=== PATIENT | female | born 1970 | race Caucasian/White ===

== ENCOUNTER 2019-04-19 11:19 | Inpatient (IN) | payer MEDICAID ==
[~2019-04-19] VITALS: Ht 167.6 cm; Wt 102.5 kg
[2019-04-19] VITALS (11 sets, daily range): BP systolic 108–152; BP diastolic 70–97
[2019-04-19] MEDS ORDERED: normal saline 1000ML IV soln IVB ONE (11:35)
[2019-04-19] MEDS ORDERED: ondansetron/PF 4mg/2ml inj IV ONE (11:35)
[2019-04-19] MEDS: morphine 4 MG/ML inj SYRINge IV PRN ×2 (12:00→13:05)
[2019-04-19 12:23] LABS: BASOPHILS # (AUTO) 0.1 X10'3 (0-0.2); BASOPHILS % (AUTO) 0.5 % (0-1); EOSINOPHILS % (AUTO) 0.2 % (0-6); HEMATOCRIT 39.9 % (35.0-45.0); HEMOGLOBIN 13.2 g/dl (12.0-16.0); LYMPHOCYTES # (AUTO) 1.7 X10'3 (1.1-4.8); LYMPHOCYTES % (AUTO) 17.8 % (21-51); MEAN CORPUSCULAR HEMOGLOBIN 28.1 PG (27.0-31.0); MEAN CORPUSCULAR HGB CONC 33.1 g/dL (33.0-36.5); MEAN CORPUSCULAR VOLUME 84.7 FL (78-98); MEAN PLATELET VOLUME 8.8 FL (7.4-10.4); MONOCYTES # (AUTO) 0.3 X10'3 (0-0.9); MONOCYTES % (AUTO) 3.2 % (2-12); NEUTROPHILS # (AUTO) 7.6 X10'3 (1.8-7.7); NEUTROPHILS % (AUTO) 78.3 % (42-75); PLATELET COUNT 295 X10'3 (140-440); RED BLOOD COUNT 4.71 X10'6 (4.20-5.60); RED CELL DISTRIBUTION WIDTH 13.6 % (11.5-14.5); WHITE BLOOD COUNT 9.7 X10'3 (4.5-11.0)
[2019-04-19 12:45] LABS: ALANINE AMINOTRANSFERASE 24 U/L (12-78); ALBUMIN 3.7 G/DL (3.4-5.0); ALBUMIN/GLOBULIN RATIO 0.9 (1.1-1.5); ALKALINE PHOSPHATASE 131 IU/L (46-116); ANION GAP 13 (8-16); ASPARTATE AMINO TRANSFERASE 19 U/L (10-37); BILIRUBIN,TOTAL 0.3 MG/DL (0.1-1.0); BLOOD UREA NITROGEN 12 MG/DL (7-18); CALCIUM 9.5 MG/DL (8.5-10.1); CHLORIDE 104 MMOL/L (99-107); CREATININE 0.92 MG/DL (0.40-0.90); GLUCOSE 146 MG/DL (70-104); LIPASE 191 U/L (73-393); POTASSIUM 3.7 MMOL/L (3.5-5.1); SODIUM 139 MMOL/L (135-145); TOTAL CARBON DIOXIDE 22.1 MMOL/L (24-32); TOTAL PROTEIN 7.6 G/DL (6.4-8.2); TROPONIN I 0.44 NG/ML (0.0-0.05); eGFR 66 ML/MIN
[2019-04-19 12:48] LABS: URINE HCG NEGATIVE (NEG)
[2019-04-19 12:49] LABS: CLARITY,URINE SLIGHTLY CLOUDY (Clear); COLOR,URINE YELLOW (Yellow); GLUCOSE, URINE NEGATIVE (Neg); KETONES,URINE 15 mg/dl (Neg); LEUKOCYTE ESTERASE ,URINE NEGATIVE (Neg); NITRITES, URINE NEGATIVE (Neg); OCCULT BLOOD,URINE NEGATIVE (Neg); PROTEIN,URINE NEGATIVE (Neg); UROBILINOGEN,URINE 0.2 E.U/dL (0.2-1.0)
[2019-04-19 12:51] LABS: UA COLLECTION TYPE URINAL
[2019-04-19 12:55] LABS: BACTERIA,URINE FEW /HPF (Neg); MUCUS STRANDS FEW /LPF (Neg); RBC,URINE 0-2 /HPF (0-2); SQUAMOUS EPITHELIAL CELL,UR MODERATE /LPF (FEW); WBC,URINE 0-4 /HPF (0-4)
[2019-04-19] MEDS ORDERED: aspirin 325mg tablet PO ONE (13:05)
--- NOTE | 2019-04-19 13:14 | NUR ---
Patient given second dose of morphine, patient c/o itching at site and reddness over the left arm. patient denies SOB and/or CP. Laney RN spoke with Dr. Luis regarding possible allergic reaction. Patient IV patent, patient denies pain, and flushing well. Dr. Luis stated that he would order patient medication.
[2019-04-19] MEDS ORDERED: diphenhydrAMINE 50 mg/ml inj IV ONE (13:15)
[2019-04-19] MEDS ORDERED: iohexol 300mg/ml 100ml inj. ONE (13:33)
[2019-04-19] MEDS ORDERED: heparin 25,000 UNIT/250ml bag 250 ML IV SCH (13:58)
[2019-04-19] MEDS ORDERED: heparin 10,000 units/1 ML INJ IV ONE (14:00)
[2019-04-19] MEDS: nitroGLYCERIN 0.4mg SUBLingual tab SL PRN ×4 (14:06→18:11)
[2019-04-19 14:18] LABS: PARTIAL THROMBOPLASTIN TIME 28 SECONDS (22-32)
[2019-04-19] MEDS ORDERED: nitroGLYCERIN-Tridil 50MG/D5W 250 ML IV SCH ×3 (14:25→18:59)
[2019-04-19 14:26] LABS: BASOPHILS # (AUTO) 0.1 X10'3 (0-0.2); BASOPHILS % (AUTO) 0.7 % (0-1); EOSINOPHILS % (AUTO) 0.1 % (0-6); HEMATOCRIT 40.7 % (35.0-45.0); HEMOGLOBIN 13.5 g/dl (12.0-16.0); LYMPHOCYTES % (AUTO) 9.8 % (21-51); MEAN CORPUSCULAR HGB CONC 33.2 g/dL (33.0-36.5); MEAN CORPUSCULAR VOLUME 84.4 FL (78-98); MEAN PLATELET VOLUME 8.3 FL (7.4-10.4); MONOCYTES # (AUTO) 0.3 X10'3 (0-0.9); MONOCYTES % (AUTO) 2.6 % (2-12); NEUTROPHILS # (AUTO) 8.5 X10'3 (1.8-7.7); NEUTROPHILS % (AUTO) 86.8 % (42-75); PLATELET COUNT 284 X10'3 (140-440); RED BLOOD COUNT 4.82 X10'6 (4.20-5.60); RED CELL DISTRIBUTION WIDTH 13.8 % (11.5-14.5); WHITE BLOOD COUNT 9.8 X10'3 (4.5-11.0)
[2019-04-19] MEDS ORDERED: magnesium 4gm in 100ml NS 100 ML IV PRN (14:45)
[2019-04-19] MEDS ORDERED: mag hydrox/Alum hydrox/simeth 30ml oral suspension PO PRN (14:45)
[2019-04-19] MEDS ORDERED: potassium Cl 20 mEq SR tablet PO PRN ×2 (14:45)
[2019-04-19] MEDS ORDERED: magnesium 2GM in 50ml NS 50 ML IV PRN (14:45)
[2019-04-19] MEDS ORDERED: magnesium hydroxide 30ml (MOM) UD suspension PO PRN (14:45)
[2019-04-19] MEDS ORDERED: ondansetron/PF 4mg/2ml inj IV PRN (14:45)
[2019-04-19] MEDS ORDERED: magnesium Cl slow-release 64mg tablet PO PRN (14:45)
[2019-04-19] MEDS ORDERED: potassium CL 10mEq/100ml bag 100 ML IV PRN ×2 (14:45)
[2019-04-19 14:47] LABS: URINE AMPHETAMINE SCREEN NEGATIVE (Neg); URINE BARBITUATE SCREEN NEGATIVE (Neg); URINE BENZODIAZEPINES SCREEN NEGATIVE (Neg); URINE CANNABINOID SCREEN NEGATIVE (Neg); URINE COCAINE SCREEN NEGATIVE (Neg); URINE METHADONE SCREEN NEGATIVE (Neg); URINE OPIATE SCREEN POSITIVE (Neg); URINE PHENCYCLIDINE SCREEN NEGATIVE (Neg)
[2019-04-19] MEDS ORDERED: nitroGLYCERIN 0.4mg/hour patch TD SCH (15:20)
[2019-04-19] MEDS ORDERED: heparin 10,000 units/1 ML INJ IV PRN (15:20)
--- NOTE | 2019-04-19 15:32 | NUR ---
Received report from Tessa SORTO RN. Noted Nitro drip has been dc'd and PTT was drawn and is pending.
[2019-04-19] MEDS ORDERED: atorvastatin 20mg tablet PO SCH (16:00)
[2019-04-19] MEDS ORDERED: OMEP40CA13 PO (16:10)
[2019-04-19] MEDS ORDERED: LANS15CA10 PO (16:10)
[2019-04-19] MEDS ORDERED: ATOR20TA PO (16:10)
[2019-04-19] MEDS: lisinopril 2.5mg tablet PO SCH (16:14)
[2019-04-19] MEDS: normal saline 1000ml 1,000 ML IV SCH (16:20)
[2019-04-19] MEDS: heparin 25,000 UNIT/250ml bag 250 ML IV SCH ×2 (17:29→20:20)
--- NOTE | 2019-04-19 17:40 | NUR ---
asked by primary RN Lucille to give nitro. pt c/o epigastric area pain 12/27. pt states the pain is the same as it was earlier in the day and that it was relieved with nitro then. pts current BP 131/86
--- NOTE | 2019-04-19 18:00 | NUR ---
Patient in room MED 315. I have received report from SALVADOR VERONICA and had the opportunity to ask questions and assume patient care.
--- NOTE | 2019-04-19 18:05 | NUR ---
Problems reprioritized. Patient report given, questions answered & plan of care reviewed with Desiree VERONICA.
[2019-04-19 18:20] LABS: PARTIAL THROMBOPLASTIN TIME 129 SECONDS (22-32)
--- NOTE | 2019-04-19 18:25 | NUR ---
Paged hosp, "Lucilel [phone] ACCE unit Anabelle Castellon having sharp chest pain after 3 nitro, ekg read per ER doc- pain medicine?" Awaiting on callback.
--- NOTE | 2019-04-19 18:45 | NUR ---
PAGE /ALBERTINA TROP 1.72 promotional table spacer PAGER ID: [phone] MESSAGE: 315 NICOLE SAWYER-ALBERTINA 1824 TROP 1.72, UNRELIEVED CHEST PAIN, NITRO X3 GIVEN, EKG DONE, PLEASE ADVISE ANG [phone]
--- NOTE | 2019-04-19 19:01 | NUR ---
Received orders from Dr. Dobson for pain and elevated troponin.
[2019-04-19] MEDS ORDERED: HYDROmorphone inj. 0.5 MG/0.5 ML DISP.SYRIN IV PRN (19:05)
[2019-04-19] MEDS: HYDROmorphone 1 mg/ml syringe IV PRN ×2 (19:42→22:15)
[2019-04-19] MEDS: carVEDilol 3.125mg tablet PO SCH (19:43)
--- NOTE | 2019-04-19 20:20 | NUR ---
HEPARIN INFUSION RATE CHANGE TO 700 Addendum: 04/19/19 at 2129 by Desiree Heart RN HEPARIN RATE CHANGE FROM 100 TO 700 PER PROTOCOL BASED ON PTT OF 129 RESULTS AT 1820
--- NOTE | 2019-04-19 20:32 | NUR ---
CRITICAL TROP 1.79 REPORTED 315 NICOLE VILLAGRAN, CRITICAL LAB 12 HOUR TROPONIN 1.79; REPORTING, Desiree RN ACCE [id number]
--- NOTE | 2019-04-19 20:45 | NUR ---
MESSAGED HOSPITALIST FOR CRITICAL TROP 1.79
--- NOTE | 2019-04-19 21:29 | NUR ---
GRETCHEN MESSAGED FOR AGGRESTAT CLARIFICATION
[2019-04-19] MEDS: tirofiban 5mg in NS 100mL 100 ML IV SCH ×2 (21:49→23:41)
[2019-04-20] VITALS (16 sets, daily range): BP systolic 92–124; BP diastolic 50–78
[2019-04-20] MEDS: heparin 10,000 units/1 ML INJ IV PRN ×3 (00:05→14:24)
[2019-04-20] MEDS: HYDROmorphone 1 mg/ml syringe IV PRN ×7 (00:10→20:07)
[2019-04-20] MEDS: normal saline 1000ml 1,000 ML IV SCH ×4 (00:42→21:56)
[2019-04-20 02:46] LABS: ALANINE AMINOTRANSFERASE 35 U/L (12-78); ALBUMIN 3.4 G/DL (3.4-5.0); ALBUMIN/GLOBULIN RATIO 0.9 (1.1-1.5); ALKALINE PHOSPHATASE 123 IU/L (46-116); ANION GAP 9 (8-16); ASPARTATE AMINO TRANSFERASE 21 U/L (10-37); BILIRUBIN,TOTAL 0.3 MG/DL (0.1-1.0); BLOOD UREA NITROGEN 5 MG/DL (7-18); BUN/CREATININE RATIO 6.1 (6.6-38.0); CALCIUM 8.6 MG/DL (8.5-10.1); CHLORIDE 103 MMOL/L (99-107); CREATININE 0.82 MG/DL (0.40-0.90); GLUCOSE 103 MG/DL (70-104); POTASSIUM 3.6 MMOL/L (3.5-5.1); SODIUM 139 MMOL/L (135-145); TOTAL CARBON DIOXIDE 27.2 MMOL/L (24-32); eGFR 75 ML/MIN
[2019-04-20 02:49] LABS: CHOL/HDL RATIO 2.6 (0.00-4.99); CHOLESTEROL 128 MG/DL (0-200); HDL CHOLESTEROL 49 MG/DL (35-60); LDL CHOLESTEROL 64 MG/DL (50-100); MAGNESIUM 1.7 MG/DL (1.5-2.4); TRIGLYCERIDES 90 MG/DL (20-135)
[2019-04-20] MEDS: tirofiban 5mg in NS 100mL 100 ML IV SCH ×2 (05:44→11:45)
--- NOTE | 2019-04-20 06:10 | NUR ---
Patient in room MED 315. I have received report from JEREMÍAS Ramírez and had the opportunity to ask questions and assume patient care.
[2019-04-20 06:22] LABS: BASOPHILS # (AUTO) 0.1 X10'3 (0-0.2); BASOPHILS % (AUTO) 0.6 % (0-1); EOSINOPHILS % (AUTO) 0.3 % (0-6); HEMATOCRIT 34.8 % (35.0-45.0); HEMOGLOBIN 11.5 g/dl (12.0-16.0); LYMPHOCYTES # (AUTO) 2.1 X10'3 (1.1-4.8); LYMPHOCYTES % (AUTO) 19.7 % (21-51); MEAN CORPUSCULAR HEMOGLOBIN 28.2 PG (27.0-31.0); MEAN CORPUSCULAR VOLUME 85.3 FL (78-98); MEAN PLATELET VOLUME 8.2 FL (7.4-10.4); MONOCYTES # (AUTO) 0.7 X10'3 (0-0.9); MONOCYTES % (AUTO) 6.4 % (2-12); NEUTROPHILS # (AUTO) 7.7 X10'3 (1.8-7.7); PLATELET COUNT 265 X10'3 (140-440); RED BLOOD COUNT 4.08 X10'6 (4.20-5.60); RED CELL DISTRIBUTION WIDTH 14.1 % (11.5-14.5); WHITE BLOOD COUNT 10.5 X10'3 (4.5-11.0)
[2019-04-20] MEDS: carVEDilol 3.125mg tablet PO SCH ×2 (07:02→19:52)
[2019-04-20] MEDS: lisinopril 2.5mg tablet PO SCH (07:02)
[2019-04-20] MEDS: K and/or MAG REPLACEMENT MC SCH (07:03)
[2019-04-20] MEDS: atorvastatin 20mg tablet PO SCH (07:08)
[2019-04-20] MEDS ORDERED: LANSOPRAZOLE PO SCH (08:00)
[2019-04-20] MEDS: aspirin 81mg tab.chew PO SCH (08:31)
[2019-04-20] MEDS: pantoprazole 40mg Tablet.DR PO SCH (08:31)
[2019-04-20] MEDS ORDERED: LIDOcaine/PRILOcaine 5gm cream TP ONE (11:20)
--- NOTE | 2019-04-20 15:01 | NUR ---
Plan for patient to get picked up at 1630 for a 1700 procedure.
--- NOTE | 2019-04-20 15:04 | NUR ---
Orientee documentation: I have reviewed and agree with all interventions, assessments performed and documented by Spring VERONICA. Orientee Medication Administration: For this medication-pass time frame, all medication were reviewed, dispensed, administered and documented per hospital policy by Spring VERONICA.
--- NOTE | 2019-04-20 15:57 | NUR ---
PAGED DR. ESCAMILLA INCREASED TEMP & HR "PAGER ID: [phone] MESSAGE: RM 315 Cain Castellon Non-urgent. Please call regarding increasing temperature & HR. Thanks Spring COBOS [phone]"
--- NOTE | 2019-04-20 16:00 | NUR ---
SPOKE WITH DR. ESCAMILLA REGARDING INCREASED TEMPERATURE & HR, RECEIVED ORDERS TO GIVE PRN TYLENOL AT THIS TIME.
[2019-04-20] MEDS: acetaminophen 325mg tablet PO PRN (16:04)
[2019-04-20] MEDS ORDERED: verapamil 2.5 mg/ml inj IV ONE (16:32)
[2019-04-20] MEDS ORDERED: midazolam 2 mg/2 ml injection ONE (16:33)
[2019-04-20] MEDS ORDERED: fentaNYL/PF 50MCG/1 ML 2ML syringe ONE (16:33)
[2019-04-20] MEDS ORDERED: nitroGLYCERIN-Tridil 50MG/D5W 250 ML IV ONE (16:33)
[2019-04-20] MEDS ORDERED: LIDOcaine 1% (10mg/ml)w/preservative injection 20ml MDV ONE (16:34)
[2019-04-20] MEDS ORDERED: iohexol 350MG/ML 100ml bottle IV ONE ×2 (16:34→18:24)
[2019-04-20] MEDS ORDERED: heparin 1,000unit/ml 10ml vial 10 ML ONE (16:34)
--- NOTE | 2019-04-20 16:45 | NUR ---
PATIENT TO [facility].
--- NOTE | 2019-04-20 17:45 | NUR ---
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
--- NOTE | 2019-04-20 18:15 | NUR ---
received report from JEREMÍAS Adkins
--- NOTE | 2019-04-20 18:28 | NUR ---
Problems reprioritized. Patient report given, questions answered & plan of care reviewed with JEREMÍAS Lopez.
--- NOTE | 2019-04-20 18:32 | NUR ---
pt went to get a CT scan
[2019-04-20] MEDS: LIDOcaine Viscous 15ml cup MM SCH (18:33)
[2019-04-20] MEDS: mag hydrox/Alum hydrox/simeth 30ml oral suspension PO SCH (19:51)
[2019-04-20] MEDS: pantoprazole 40MG/NS 100ML BAG 100 ML IV SCH (21:57)
[2019-04-21] VITALS (19 sets, daily range): BP systolic 89–142; BP diastolic 56–98
[2019-04-21] MEDS: piperacillin/tazo 3.375gm/50ml 50 ML IV SCH ×3 (00:44→16:00)
[2019-04-21] MEDS: pantoprazole 40MG/NS 100ML BAG 100 ML IV SCH ×2 (00:48→05:54)
[2019-04-21] MEDS: HYDROmorphone 1 mg/ml syringe IV PRN ×4 (05:54→23:10)
--- NOTE | 2019-04-21 06:15 | NUR ---
Patient in room MED 315. I have received report from JEREMÍAS Lopez and had the opportunity to ask questions and assume patient care.
[2019-04-21 06:19] LABS: BASOPHILS % (AUTO) 0.3 % (0-1); EOSINOPHILS # (AUTO) 0.1 X10'3 (0-0.9); EOSINOPHILS % (AUTO) 0.7 % (0-6); HEMATOCRIT 36.2 % (35.0-45.0); HEMOGLOBIN 11.8 g/dl (12.0-16.0); LYMPHOCYTES # (AUTO) 1.5 X10'3 (1.1-4.8); LYMPHOCYTES % (AUTO) 12.5 % (21-51); MEAN CORPUSCULAR HGB CONC 32.6 g/dL (33.0-36.5); MEAN CORPUSCULAR VOLUME 85.9 FL (78-98); MEAN PLATELET VOLUME 8.6 FL (7.4-10.4); MONOCYTES # (AUTO) 1.1 X10'3 (0-0.9); MONOCYTES % (AUTO) 9.3 % (2-12); NEUTROPHILS # (AUTO) 9.3 X10'3 (1.8-7.7); NEUTROPHILS % (AUTO) 77.2 % (42-75); PLATELET COUNT 213 X10'3 (140-440); RED BLOOD COUNT 4.21 X10'6 (4.20-5.60); RED CELL DISTRIBUTION WIDTH 14.2 % (11.5-14.5); WHITE BLOOD COUNT 12.1 X10'3 (4.5-11.0)
--- NOTE | 2019-04-21 06:40 | NUR ---
gave report to JEREMÍAS Posada and JEREMÍAS Londono "o"
[2019-04-21 07:02] LABS: ALANINE AMINOTRANSFERASE 26 U/L (12-78); ALBUMIN 2.8 G/DL (3.4-5.0); ALBUMIN/GLOBULIN RATIO 0.8 (1.1-1.5); ALKALINE PHOSPHATASE 108 IU/L (46-116); ANION GAP 8 (8-16); ASPARTATE AMINO TRANSFERASE 17 U/L (10-37); BILIRUBIN,TOTAL 0.8 MG/DL (0.1-1.0); BLOOD UREA NITROGEN 6 MG/DL (7-18); CALCIUM 8.3 MG/DL (8.5-10.1); CHLORIDE 104 MMOL/L (99-107); CREATININE 0.86 MG/DL (0.40-0.90); GLUCOSE 113 MG/DL (70-104); MAGNESIUM 1.7 MG/DL (1.5-2.4); POTASSIUM 3.6 MMOL/L (3.5-5.1); SODIUM 137 MMOL/L (135-145); TOTAL CARBON DIOXIDE 25.3 MMOL/L (24-32); TOTAL PROTEIN 6.5 G/DL (6.4-8.2); eGFR 71 ML/MIN
[2019-04-21] MEDS: normal saline 1000ml 1,000 ML IV SCH ×2 (07:33→16:42)
[2019-04-21] MEDS: pantoprazole 40mg Tablet.DR PO SCH (07:34)
[2019-04-21] MEDS: K and/or MAG REPLACEMENT MC SCH (07:34)
[2019-04-21] MEDS: mag hydrox/Alum hydrox/simeth 30ml oral suspension PO SCH (07:34)
[2019-04-21] MEDS: LIDOcaine Viscous 15ml cup MM SCH (07:34)
[2019-04-21] MEDS: atorvastatin 20mg tablet PO SCH (07:36)
[2019-04-21] MEDS: carVEDilol 3.125mg tablet PO SCH ×2 (07:36→21:09)
[2019-04-21] MEDS: lisinopril 2.5mg tablet PO SCH (07:36)
[2019-04-21] MEDS: aspirin 81mg tab.chew PO SCH (08:20)
[2019-04-21] MEDS ORDERED: famotidine/PF 10 mg/ml inj IV ONE (14:20)
--- NOTE | 2019-04-21 15:31 | NUR ---
Called report to Ranjana in Recovery.
--- NOTE | 2019-04-21 15:40 | NUR ---
Patient to OR at 1540.
[2019-04-21] MEDS ORDERED: BUPIVAcaine/PF 2.5 mg/ml (0.25%) 30ml vial ONE (17:09)
[2019-04-21] MEDS ORDERED: ceFAZolin 1000mg inj ONE (17:09)
[2019-04-21] MEDS ORDERED: sevoflurane 250ml liquid IH ONE (17:53)
[2019-04-21] MEDS ORDERED: midazolam 2 mg/2 ml injection ONE (18:00)
[2019-04-21] MEDS ORDERED: fentaNYL /PF 50mcg/ml 5ml ampule ONE (18:01)
[2019-04-21] MEDS ORDERED: ceFOXitin 2 GM ADDVANTGE BAG 50 ML IV ONE (18:02)
[2019-04-21] MEDS ORDERED: rocuronium 10mg/ml inj IV ONE ×3 (18:04→19:33)
--- NOTE | 2019-04-21 18:13 | NUR ---
Problems reprioritized. Patient report given, questions answered & plan of care reviewed with JEREMÍAS Lopez.
[2019-04-21] MEDS ORDERED: ringers solution, lacted 1,000 ML IV SCH (18:32)
[2019-04-21] MEDS ORDERED: hydrALAZINE 20mg/ml inj. IV PRN (18:35)
[2019-04-21] MEDS ORDERED: ondansetron/PF 4mg/2ml inj IV PRN ×2 (18:35→19:45)
[2019-04-21] MEDS ORDERED: labetalol 20mg/4ml (5mg/ml) syringe IV PRN (18:35)
[2019-04-21] MEDS ORDERED: HYDROmorphone inj. 0.5 MG/0.5 ML DISP.SYRIN IV PRN ×2 (18:35)
[2019-04-21] MEDS ORDERED: meperidine/PF 25mg/ml syringe IV PRN ×3 (18:35)
[2019-04-21] MEDS ORDERED: propofol inj 20 ML IV ONE (19:00)
[2019-04-21] MEDS ORDERED: acetaminophen 1,000mg/100ml IV 100 ML IV ONE (19:33)
[2019-04-21] MEDS ORDERED: glycopyrrolate 0.2mg/ml inj ONE (19:41)
[2019-04-21] MEDS ORDERED: neostigmine methylsulfate 1 MG/ML 10ml vial ONE (19:41)
--- NOTE | 2019-04-21 19:45 | NUR ---
ADMITTED TO PACU FROM OR ACCOMPANIED BY ANESTHESIA. INTIAL PHYSICAL ASSESSMENT DONE AND RECORDED. REPORT RECEIVED FROM ANESTHESIA.
--- NOTE | 2019-04-21 20:41 | NUR ---
received report from Katharine in Recovery
--- NOTE | 2019-04-21 20:45 | NUR ---
PACU DISCHARGE CRITERIA MET, REPORT GIVEN TO FLOOR. DENIES PAIN OR DISCOMFORT, TRANSFERRED TO ROOM IN STABLE GOOD CONDITION.
--- NOTE | 2019-04-21 20:55 | NUR ---
ADMITTED TO PACU FROM OR ACCOMPANIED BY ANESTHESIA. INTIAL PHYSICAL ASSESSMENT DONE AND RECORDED. REPORT RECEIVED FROM ANESTHESIA.
[2019-04-21] MEDS: lactobacillus rhamnosus 10,000 MMU CELLS/CAPSULE PO SCH (21:08)
[2019-04-21] MEDS: HYDROcodone/acetaminophen 10/325mg tab PO PRN (21:09)
[2019-04-21] MEDS: potassium CL 20mEq in D5-1/2NS 1,000 ML IV SCH (21:30)
--- NOTE | 2019-04-21 23:21 | NUR ---
315 going on tele 27, telephone station installer notified
[2019-04-22] MEDS: piperacillin/tazo 3.375gm/50ml 50 ML IV SCH ×4 (00:42→23:24)
[2019-04-22] MEDS: HYDROmorphone 1 mg/ml syringe IV PRN ×3 (01:36→07:28)
[2019-04-22 02:00] VITALS: BP 115/75
[2019-04-22] MEDS: normal saline 1000ml 1,000 ML IV SCH (02:42)
[2019-04-22] MEDS: potassium CL 20mEq in D5-1/2NS 1,000 ML IV SCH ×3 (05:41→19:42)
[2019-04-22 06:00] VITALS: BP 117/84
--- NOTE | 2019-04-22 06:00 | NUR ---
Patient in room MED 315. I have received report from JEREMÍAS Boo and had the opportunity to ask questions and assume patient care.
[2019-04-22 06:11] LABS: BASOPHILS # (AUTO) 0.1 X10'3 (0-0.2); BASOPHILS % (AUTO) 0.4 % (0-1); EOSINOPHILS # (AUTO) 0.1 X10'3 (0-0.9); EOSINOPHILS % (AUTO) 0.9 % (0-6); HEMATOCRIT 39.5 % (35.0-45.0); HEMOGLOBIN 12.8 g/dl (12.0-16.0); LYMPHOCYTES # (AUTO) 1.9 X10'3 (1.1-4.8); LYMPHOCYTES % (AUTO) 13.8 % (21-51); MEAN CORPUSCULAR HEMOGLOBIN 28.1 PG (27.0-31.0); MEAN CORPUSCULAR HGB CONC 32.5 g/dL (33.0-36.5); MEAN CORPUSCULAR VOLUME 86.3 FL (78-98); MEAN PLATELET VOLUME 8.7 FL (7.4-10.4); MONOCYTES # (AUTO) 1.2 X10'3 (0-0.9); MONOCYTES % (AUTO) 8.9 % (2-12); NEUTROPHILS # (AUTO) 10.2 X10'3 (1.8-7.7); PLATELET COUNT 241 X10'3 (140-440); RED BLOOD COUNT 4.58 X10'6 (4.20-5.60); RED CELL DISTRIBUTION WIDTH 14.2 % (11.5-14.5); WHITE BLOOD COUNT 13.4 X10'3 (4.5-11.0)
--- NOTE | 2019-04-22 06:25 | NUR ---
gave report to JEREMÍAS Green
[2019-04-22 06:31] LABS: MAGNESIUM 1.9 MG/DL (1.5-2.4)
[2019-04-22 07:09] LABS: ALBUMIN 3.1 G/DL (3.4-5.0); ANION GAP 15 (8-16); BLOOD UREA NITROGEN 4 MG/DL (7-18); BUN/CREATININE RATIO 4.9 (6.6-38.0); CALCIUM 8.5 MG/DL (8.5-10.1); CHLORIDE 104 MMOL/L (99-107); CREATININE 0.82 MG/DL (0.40-0.90); GLUCOSE 115 MG/DL (70-104); POTASSIUM 4.2 MMOL/L (3.5-5.1); SODIUM 140 MMOL/L (135-145); TOTAL CARBON DIOXIDE 20.6 MMOL/L (24-32); eGFR 75 ML/MIN
[2019-04-22] MEDS: pantoprazole 40mg Tablet.DR PO SCH (07:42)
[2019-04-22] MEDS: lisinopril 2.5mg tablet PO SCH (07:42)
[2019-04-22] MEDS: carVEDilol 3.125mg tablet PO SCH ×2 (07:42→21:28)
[2019-04-22] MEDS: aspirin 81mg tab.chew PO SCH (07:42)
[2019-04-22] MEDS: lactobacillus rhamnosus 10,000 MMU CELLS/CAPSULE PO SCH ×2 (07:42→21:27)
[2019-04-22] MEDS: LIDOcaine Viscous 15ml cup MM SCH (07:44)
[2019-04-22] MEDS: mag hydrox/Alum hydrox/simeth 30ml oral suspension PO SCH (07:45)
[2019-04-22] MEDS: K and/or MAG REPLACEMENT MC SCH (08:00)
[2019-04-22] MEDS ORDERED: atorvastatin 20mg tablet PO SCH (08:02)
[2019-04-22 11:00] VITALS: BP 127/85
--- NOTE | 2019-04-22 12:00 | NUR ---
Gave tylenol 650 mg for fever, temp went down for 99.9 (O)
--- NOTE | 2019-04-22 12:00 | NUR ---
Student documentation: I have reviewed and agree with all interventions, assessments performed and documented by Jyoti, student RN.
[2019-04-22] MEDS: acetaminophen 325mg tablet PO PRN ×2 (12:15→21:33)
[2019-04-22 15:00] VITALS: BP 106/71
[2019-04-22] MEDS: HYDROcodone/acetaminophen 10/325mg tab PO PRN (17:25)
[2019-04-22 18:00] VITALS: BP 136/86
--- NOTE | 2019-04-22 18:00 | NUR ---
Problems reprioritized. Patient report given, questions answered & plan of care reviewed with Ema VERONICA.
--- NOTE | 2019-04-22 18:15 | NUR ---
received report from JEREMÍAS Green
[2019-04-22 22:00] VITALS: BP 104/70
[2019-04-23 02:00] VITALS: BP 122/73
[2019-04-23 06:00] VITALS: BP 132/83
--- NOTE | 2019-04-23 06:10 | NUR ---
Patient in room MED 315. I have received report from JEREMÍAS Lopez and had the opportunity to ask questions and assume patient care.
--- NOTE | 2019-04-23 06:10 | NUR ---
gave report to JEREMÍAS Mccarty and JEREMÍAS Coker "o"
[2019-04-23 06:20] LABS: BASOPHILS # (AUTO) 0.1 X10'3 (0-0.2); BASOPHILS % (AUTO) 0.6 % (0-1); EOSINOPHILS # (AUTO) 0.2 X10'3 (0-0.9); EOSINOPHILS % (AUTO) 1.8 % (0-6); HEMATOCRIT 34.7 % (35.0-45.0); HEMOGLOBIN 11.4 g/dl (12.0-16.0); LYMPHOCYTES # (AUTO) 1.8 X10'3 (1.1-4.8); LYMPHOCYTES % (AUTO) 19.1 % (21-51); MEAN CORPUSCULAR HEMOGLOBIN 28.2 PG (27.0-31.0); MEAN CORPUSCULAR HGB CONC 32.9 g/dL (33.0-36.5); MEAN CORPUSCULAR VOLUME 85.6 FL (78-98); MEAN PLATELET VOLUME 8.6 FL (7.4-10.4); MONOCYTES # (AUTO) 0.7 X10'3 (0-0.9); MONOCYTES % (AUTO) 8.1 % (2-12); NEUTROPHILS # (AUTO) 6.4 X10'3 (1.8-7.7); NEUTROPHILS % (AUTO) 70.4 % (42-75); PLATELET COUNT 251 X10'3 (140-440); RED BLOOD COUNT 4.06 X10'6 (4.20-5.60); WHITE BLOOD COUNT 9.2 X10'3 (4.5-11.0)
[2019-04-23] MEDS: K and/or MAG REPLACEMENT MC SCH (08:00)
[2019-04-23] MEDS: piperacillin/tazo 3.375gm/50ml 50 ML IV SCH (08:03)
[2019-04-23] MEDS: pantoprazole 40mg Tablet.DR PO SCH (08:04)
[2019-04-23] MEDS: lactobacillus rhamnosus 10,000 MMU CELLS/CAPSULE PO SCH (08:06)
[2019-04-23] MEDS: aspirin 81mg tab.chew PO SCH (08:06)
[2019-04-23] MEDS: lisinopril 2.5mg tablet PO SCH (08:07)
[2019-04-23] MEDS: carVEDilol 3.125mg tablet PO SCH (08:07)
[2019-04-23] MEDS: mag hydrox/Alum hydrox/simeth 30ml oral suspension PO SCH (08:11)
[2019-04-23] MEDS ORDERED: ASPI-1264 PO (10:05)
[2019-04-23] MEDS ORDERED: METO-539 PO (10:05)
--- NOTE | 2019-04-23 10:19 | NUR ---
Paged Dr. Macario: "PAGER ID: [phone] MESSAGE: 315 Cain Castellon Patient requesting Percocet as pain med for discharge. Thanks, Sheela ACCE [phone]"
[2019-04-23] MEDS ORDERED: OXYC-145 PO (10:20)
--- NOTE | 2019-04-23 10:57 | NUR ---
NILDA drain discontinued by air purifier servicer & orientee at this time per MD orders. Patient tolerated well, 50mLs of serosanguineous drainage in drain. Clean, dry, dressing in place.
[2019-04-23 11:00] VITALS: BP 141/95
[2019-04-23] MEDS: acetaminophen 325mg tablet PO PRN (11:00)
--- NOTE | 2019-04-23 12:25 | NUR ---
Patient stable for discharge per MD orders. Rx handed to patient and called in to [facility] in [place]. All discharge instructions reviewed and sent with patient. All questions answered. 2 PIVs removed, cannulas intact, clean, dry dressings in place. radio reporter removed. All personal belongings collected and sent with patient/. Patient wheeled to private vehicle by RN at 1225.
== END 2019-04-23 12:25 | disposition home or self-care (01) | DRG 710 ==
LOC: ER 11:20 → ED HOLD 14:56 → OBSVTOIN 14:56 → MED 3N 15:43
PROVIDERS: ADMIT Family Medicine; ATTEND Internal Medicine
PROC: BW211ZZ Computerized Tomography (CT Scan) of Abdomen and Pelvis using Low Osmolar Contrast (ICD-10-PCS; 2019-04-19)
PROC: 4A023N7 Measurement of Cardiac Sampling and Pressure, Left Heart, Percutaneous Approach (ICD-10-PCS; 2019-04-20)
PROC: B2111ZZ Fluoroscopy of Multiple Coronary Arteries using Low Osmolar Contrast (ICD-10-PCS; 2019-04-20)
PROC: B2151ZZ Fluoroscopy of Left Heart using Low Osmolar Contrast (ICD-10-PCS; 2019-04-20)
PROC: B32T1ZZ Computerized Tomography (CT Scan) of Left Pulmonary Artery using Low Osmolar Contrast (ICD-10-PCS; 2019-04-20)
PROC: B3201ZZ Computerized Tomography (CT Scan) of Thoracic Aorta using Low Osmolar Contrast (ICD-10-PCS; 2019-04-20)
PROC: B32S1ZZ Computerized Tomography (CT Scan) of Right Pulmonary Artery using Low Osmolar Contrast (ICD-10-PCS; 2019-04-20)
PROC: 0FT44ZZ Resection of Gallbladder, Percutaneous Endoscopic Approach (ICD-10-PCS; principal; 2019-04-21 17:53)
DX: A41.9 Sepsis, unspecified organism (principal); I21.A1 Myocardial infarction type 2; E03.9 Hypothyroidism, unspecified; E66.9 Obesity, unspecified; E78.00 Pure hypercholesterolemia, unspecified; E78.5 Hyperlipidemia, unspecified; I10 Essential (primary) hypertension; G89.29 Other chronic pain; K21.9 Gastro-esophageal reflux disease without esophagitis; R73.9 Hyperglycemia, unspecified; M54.9 Dorsalgia, unspecified; K80.00 Calculus of gallbladder with acute cholecystitis without obstruction; M54.30 Sciatica, unspecified side; Z79.82 Long term (current) use of aspirin; Z79.899 Other long term (current) drug therapy; Z80.0 Family history of malignant neoplasm of digestive organs; Z87.442 Personal history of urinary calculi; Z90.710 Acquired absence of both cervix and uterus; Z68.36 Body mass index [BMI] 36.0-36.9, adult; Z88.5 Allergy status to narcotic agent
CPT/HCPCS: 36415; 71275; 74177; 76700; 76937; 80048; 80053; 80061; 80305; 81001; 81025; 82948; 83605; 83690; 83735; 84145; 84484; 85025; 85610; 85730; 87040; 87081; 93005; 93306; 93458; 96374; 96375; 96376; 99152; 99285; A4215; A4314; A4618; A4620; A4663; A5120; A6258; A6402; A7000; C1769; C1894; C9113; G0378; J0131; J0690; J0694; J1170; J1200; J1644; J2001; J2175; J2250; J2270; J2405; J2543; J2704; J2710; J3010; J3246; J3480; J3490; J7030; J7120; Q9967

== ENCOUNTER 2020-06-21 16:21 | Emergency (ER) | payer MEDICAID ==
[~2020-06-21] VITALS: Ht 167.6 cm; Wt 92.9 kg
[~2020-06-21 16:21] MED LIST: ATOR20TA PO; OMEP40CA13 PO; OXYC-145 PO
[2020-06-21 16:29] VITALS: BP 138/94
== END 2020-06-21 17:35 | disposition home or self-care (01) ==
LOC: ER 16:22
DX: S63.502A Unspecified sprain of left wrist, initial encounter (principal); E78.00 Pure hypercholesterolemia, unspecified; G89.29 Other chronic pain; Z90.710 Acquired absence of both cervix and uterus; Z85.020 Personal history of malignant carcinoid tumor of stomach; Z88.6 Allergy status to analgesic agent; Z79.899 Other long term (current) drug therapy; X50.0XXA Overexertion from strenuous movement or load, initial encounter; Y93.89 Activity, other specified; Y92.89 Other specified places as the place of occurrence of the external cause; Y99.8 Other external cause status
CPT/HCPCS: 29260; 73110; 99283

== ENCOUNTER 2023-10-19 10:29 | Outpatient (CLI) | payer MEDICAID ==
[~2023-10-19 10:29] MED LIST changes: -OMEP40CA13 PO; +OMEP40CA21 PO
== END 2023-10-19 23:59 | disposition home or self-care (01) ==
LOC: MRI 10:29
PROVIDERS: ATTEND Nurse Practitioner Pediatrics
DX: M47.812 Spondylosis without myelopathy or radiculopathy, cervical region (principal); M48.02 Spinal stenosis, cervical region; M54.6 Pain in thoracic spine; M50.31 Other cervical disc degeneration, high cervical region
CPT/HCPCS: 72141; 72146

== ENCOUNTER → 2023-11-13 | Outpatient (CLI) | payer MEDICAID | END | disposition home or self-care (01) | LOC: MRI 14:55 | PROVIDERS: ATTEND Family Medicine | DX: M48.07 Spinal stenosis, lumbosacral region (principal); M51.36 Other intervertebral disc degeneration, lumbar region | CPT/HCPCS: 72148 ==

== ENCOUNTER → 2023-12-04 | Outpatient (CLI) | payer MEDICAID | END | disposition home or self-care (01) | LOC: MRI 13:07 | PROVIDERS: ATTEND Podiatrist Foot & Ankle Surgery | DX: M77.32 Calcaneal spur, left foot (principal); M25.472 Effusion, left ankle; M25.372 Other instability, left ankle; M76.72 Peroneal tendinitis, left leg; M76.62 Achilles tendinitis, left leg; M79.672 Pain in left foot | CPT/HCPCS: 73721 ==